=== PATIENT | female | born 1990 | race Caucasian/White ===

== ENCOUNTER 2022-05-06 11:32 | Emergency (ER) | payer MEDICAID ==
[~2022-05-06] VITALS: Ht 160 cm; Wt 75.0 kg
[2022-05-06 13:37] VITALS: BP 134/87
[2022-05-06] MEDS ORDERED: TRAM50TA2 PO (13:52)
[2022-05-06] MEDS ORDERED: ENOX40SY7 SUBCUT (13:52)
== END 2022-05-06 14:26 | disposition home or self-care (01) ==
LOC: ER 11:33
DX: F19.10 Other psychoactive substance abuse, uncomplicated (principal); Z86.711 Personal history of pulmonary embolism; Z86.718 Personal history of other venous thrombosis and embolism; Z79.01 Long term (current) use of anticoagulants; Z79.899 Other long term (current) drug therapy
CPT/HCPCS: 99282

== ENCOUNTER 2022-05-11 00:34 | Emergency (ER) | payer MEDICAID ==
[~2022-05-11] VITALS: Ht 160 cm; Wt 75.0 kg
[~2022-05-11 00:34] MED LIST: ENOX40SY7 SUBCUT; TRAM50TA2 PO
[2022-05-11 01:57] VITALS: BP 114/81
== END 2022-05-11 04:05 | disposition left against medical advice (07) ==
LOC: ER 00:39
DX: R10.9 Unspecified abdominal pain (principal); Z53.21 Procedure and treatment not carried out due to patient leaving prior to being seen by health care provider

== ENCOUNTER 2023-02-20 13:16 | Emergency (ER) | payer MEDICAID ==
[~2023-02-20] VITALS: Ht 160 cm; Wt 65.0 kg
[2023-02-20 13:43] VITALS: BP 102/63
[2023-02-20] MEDS ORDERED: ONDA4TAB12 PO (15:05)
[2023-02-20] MEDS ORDERED: MECL-159 PO (15:05)
[2023-02-20] MEDS ORDERED: ondansetron 4mg rapidly disintigrating tab PO ONE (15:10)
[2023-02-20] MEDS ORDERED: meclizine 12.5mg tablet PO ONE (15:10)
== END 2023-02-20 16:20 | disposition home or self-care (01) ==
LOC: ER 13:17
DX: R42 Dizziness and giddiness (principal); Z91.040 Latex allergy status; Z79.899 Other long term (current) drug therapy
CPT/HCPCS: 99283; J8597